=== PATIENT | female | born 1955 | race Caucasian/White ===

== ENCOUNTER 2016-08-31 21:30 | Emergency (ER) | payer OTHER ==
[~2016-08-31 21:30] MED LIST: ALER-CAP25 MG PO; AMITIZA8 MCG PO; B121000P IM; BENTYL10 PO; BENTYL20 PO; BUSPAR5 PO; C2 PO; CELEBREX2 PO; COUMADIN4 MG; COUMADIN6 MG PO; DERMOTIC OT; DETROLLA4 PO; DIABETA5 PO; ESTRADIOL2 MG V; FISH-EPA1000 MG PO; FLEX PO; FLOMAX4 PO; GLUCOPHAGE1000 MG PO; IMOD PO; ISOPTIN SR240 MG PO; ISOPTINSR PO; JANTOVEN4 MG PO; JANUMET XR 50-1 EAC1 PO; JANUMET1 TA1 PO; KLOR-CON 1010 MEQ PO; KLOR-CON M2020 MEQ PO; L20 PO; LEVOTHYROXIN50 MCG PO; LIOR10 PO; LOFIB160 PO; LOFIBRA160 MG PO; LORTAB10 PO; LOVAZA1 GM PO; LOVENOX80 SC; MAX25 PO; MAXIMUM D3 PO; MCZ125 PO; MCZ25 PO; MICRONASE5 MG PO; MIRALAXPKT PO; NORCO1 TAB PO; PCET PO; PRAV10 PO; PRILO PO; PRILOSEC40 MG PO; PRIN2.5 PO; PRIN20 PO; PROAIR HFA INH; PROTONIX PO; PVC V; REG PO; REQUIP5 PO; SEROQUEL1C PO; SUCR PO; TOVIAZ4 MG PO; TRICOR145 PO; VERELAN240 MG PO; XANAX1 MG PO; Z100 PO; ZANAFLEX 4 MG TA4 MG PO; ZANTAC 150 PO; ZOFRANODT8 SL; ZOL100 PO
== END 2016-08-31 23:07 | disposition home or self-care (01) ==
LOC: ER 21:30
DX: G43.909 Migraine, unspecified, not intractable, without status migrainosus (principal); Z88.1 Allergy status to other antibiotic agents; Z79.899 Other long term (current) drug therapy; Z88.8 Allergy status to other drugs, medicaments and biological substances; Z79.01 Long term (current) use of anticoagulants
CPT/HCPCS: 96374; 96375; 99283; J1170; J2550